=== PATIENT | male | born 1950 | race Caucasian/White ===

== ENCOUNTER 2017-03-07 06:17 | Emergency (ER) | payer OTHER ==
[~2017-03-07] VITALS: Ht 172.7 cm; Wt 82.6 kg
[2017-03-07 06:52] LABS: HEMATOCRIT 48.5 % (38.0-50.0); MCH 30.6 PG (29.0-34.0); MCHC 34.4 G/DL (30.0-36.0); MCV 88.8 FL (86-99); MEAN PLAT.VOLUME 10.5 uM^3 (9.0-12.4); PLATELET COUNT 234 K/uL (156-360); RBC DIS.WIDTH-CV 12.5 % (11.8-14.6); RBC DIS.WIDTH-SD 40.8 % (39-53); RED BLOOD COUNT 5.46 M/uL (4.00-5.50); WHITE BLOOD COUNT 11.7 K/uL (4.1-10.2)
[2017-03-07 07:03] LABS: CHLORIDE 103 mEq/L (99-109); SODIUM 139 mEq/L (136-147)
[2017-03-07 07:05] LABS: GLUCOSE 110 mg/dL (70-99)
[2017-03-07 07:06] LABS: ANION GAP 10 MEQ/L (2-14)
[2017-03-07 07:09] LABS: GFR ESTIMATE (CALCULATED) 59 mL/min/
[2017-03-07 07:10] LABS: UREA NITROGEN (BUN) 19 mg/dL (9-23)
[2017-03-07 07:32] LABS: ADD MIUA? YES; BILIRUBIN NEGATIVE; BLOOD MODERATE; COLOR YELLOW ((YELLOW)); GLUCOSE (STRIP) NEGATIVE; KETONES NEGATIVE; LEUKOCYTES NEGATIVE; NITRITE NEGATIVE; PROTEIN (STRIP) 30; SPECIFIC GRAVITY 1.016 (1.000-1.030); UROBILINOGEN 0.2 MG/DL (0.2-1.0)
[2017-03-07 07:40] LABS: BACTERIA NONE SEEN /HPF; EPITHELIAL CELLS NONE SEEN /HPF; MUCUS 2+ /LPF; RED BLOOD CELLS TNTC /HPF (0-5); UCUL ADDED? YES; WHITE BLOOD CELLS 0-5 /HPF (0-5)
[2017-03-07] MEDS ORDERED: FLOMAX0.4 MG PO (09:08)
[2017-03-07] MEDS ORDERED: NAPROXEN500 MG PO (09:08)
[2017-03-07] MEDS ORDERED: ZOFRAN ODT4 MG PO (09:08)
[2017-03-07] MEDS ORDERED: PERCOCET 5/31 TABLET PO (09:08)
[2017-03-07 09:22] VITALS: BP 171/92
== END 2017-03-07 09:29 | disposition home or self-care (01) ==
LOC: EME 06:17
PROVIDERS: Emergency Medicine
DX: N20.0 Calculus of kidney (principal); K21.9 Gastro-esophageal reflux disease without esophagitis; I10 Essential (primary) hypertension; E78.5 Hyperlipidemia, unspecified; Z87.891 Personal history of nicotine dependence
CPT/HCPCS: 74176; 80048; 81003; 85027; 87086; 99281; 99285; J1885; J2270; J2405; J7030